=== PATIENT | female | born 1985 | race Two or more races ===

== ENCOUNTER 2023-10-30 11:26 | Outpatient (CLI) | payer OTHER, SELFPAY | END 2023-10-30 11:27 | disposition home or self-care (01) | PROVIDERS: Visit Provider Physician Assistant | DX: Z13.220 Encounter for screening for lipoid disorders (principal); Z13.29 Encounter for screening for other suspected endocrine disorder | CPT/HCPCS: 80061; 84443 ==

== ENCOUNTER 2023-11-27 15:56 | Outpatient (CLI) | payer OTHER, SELFPAY ==
--- NOTE | 2023-11-27 16:00 | US_ITS ---
Patient: DEDE VARELA Facility:?[facility] Patient ID:?[id number] Site Patient ID:?[id number]. Site :?1985 Study:?US-Pelvis PELVIS TA & TV-11/27/2023 6:10:16 PM Ordering Physician:ZEUS DECEMBER Final Report: INDICATION: Ovarian cyst. TECHNIQUE: Transabdominal and transvaginal pelvic ultrasound. COMPARISON: None. FINDINGS: Uterus is anteverted and measures 10.3 x 5.3 x 6.4 cm. Multiple nabothian cysts in the cervix. Endometrial stripe thickness is 1.7 cm. Endometrium is heterogeneous. Focal hyperechoic area within the endometrium measuring 1.5 cm, potentially a polyp. Both ovaries appear normal at normal color flow. Right ovary contains a couple of follicles measuring up to 2.6 cm. Trace free fluid. No adnexal mass. IMPRESSION: Heterogeneous, thickened endometrium and possible 1.5 cm polyp. Dictated by Lei Angelo MD @ 11/28/2023 9:12:30 AM Signed by:?Lei Angelo MD @11/28/2023 9:12:30 AM (Electronic Signature)
== END 2023-11-27 15:57 | disposition home or self-care (01) ==
LOC: US 15:57
PROVIDERS: Visit Provider Physician Assistant
DX: N83.209 Unspecified ovarian cyst, unspecified side (principal); R93.89 Abnormal findings on diagnostic imaging of other specified body structures
CPT/HCPCS: 76830; 76856

== ENCOUNTER 2024-01-08 13:14 | Outpatient (CLI) | payer OTHER, SELFPAY ==
--- NOTE | 2024-01-08 13:20 | MM_ITS ---
Patient: DEDE VARELA Facility:?[facility] R[facility] Patient ID:?[id number] Site Patient ID:?[id number]. Site :?1985 Study:?XRay-Breast Bilateral 3D W/CAD-01/08/2024 1:51:08 PM Ordering Physician:Xiomara December Final Report: BILATERAL SCREENING MAMMOGRAM WITH COMPUTER-AIDED DETECTION AND TOMOSYNTHESIS TECHNIQUE: CC and MLO views were obtained. These mammographic images have been obtained using full-field digital technique. These mammographic images were interpreted with the benefit of computer-aided detection. Breast Tomosynthesis was used in this interpretation. COMPARISON FILM: Baseline. FINDINGS: There are scattered areas of fibroglandular density. IMPRESSION: There is no radiographic evidence for malignancy. ASSESSMENT: BI-RADS Category 1: Negative RECOMMENDATION: Routine screening mammogram in 1 year. A lay language report of this examination will be provided to the patient. Quoc Hammond M.D. Diagnostic Radiologist [email or web address] R& Transcribed: 2:08 p.mJessee SP/Dictated by: Quoc Hammond MD @ 01/09/2024 9:24:00 AM Signed by:?Quoc Hammond MD @01/09/2024 3:20:06 PM (Electronic Signature)
== END 2024-01-08 13:15 | disposition home or self-care (01) ==
LOC: MAMMO 13:15
PROVIDERS: Visit Provider Physician Assistant
DX: Z12.31 Encounter for screening mammogram for malignant neoplasm of breast (principal)
CPT/HCPCS: 77063; 77067

== ENCOUNTER 2024-01-18 10:30 | Day surgery (SDC) | payer OTHER, SELFPAY ==
[2024-01-18 10:54] LABS: Ur HCG Qualitative* Negative (Negative)
[2024-01-18 11:09] VITALS: BMI 39.6
[2024-01-18 11:10] LABS: Hemoglobin* 13.6 gm/dL (12.0-16.0)
[2024-01-18 11:15] VITALS: BP 126/66; PULSE 72; RESP 20; TEMP 36.7; O2SAT 97
--- NOTE | 2024-01-18 11:26 | SUR.PREOP ---
pt speaks Portugese but understands hungarian well. Her speaks hungarian primarily and Portugese as well. Pt states she does not feel she requires any further assistance with the language issue. They are aware her cannot go back or OR with her
[2024-01-18 11:27] LABS: Creatinine* 0.7 mg/dL (0.5-1.5); Est. Creatinine Clearance* 107.77; Estimated Glomerular Filt Rate 112 ml/min
[2024-01-18] MEDS: SODIUM CHLORIDE 0.9 % (FLUSH) 10 ML SYRINGE IVF (11:29)
[2024-01-18] MEDS: LACTATED RINGERS 1000 ML 1,000 ML 100 ML IV (11:29)
--- NOTE | 2024-01-18 13:00 | SUR.OPER ---
PATIENT QUESTIONS ANSWERED SATISFACTORILY PREOPERATIVELY. PATIENT BROUGHT TO OR #4 PER CART. Patient positioned supine on OR #4 bed.? Perioperative team supported arms bilaterally on arm boards.? Final approval of positioning by surgeon. CONTINUOUS IRRIGATION OF THE UTERUS WITH NACL DURING PROCEDURE.
[2024-01-18] MEDS: SILVER NITRATE APPLICATOR 1 EACH STICK..EA. 3 EACH TOPICAL (13:16)
--- NOTE | 2024-01-18 13:23 | W.ANESCHARGE ---
Anesthesia Charges Start Date/Time Anesthesia Start Date: 01/18/24 Anesthesia Start Time: 12:36 Stop Date/Time Anesthesia Stop Date: 01/18/24 Anesthesia Stop Time: 13:29
--- NOTE | 2024-01-18 13:31 | W.ANESCHARGE ---
Anesthesia Charges Start Date/Time Anesthesia Start Date: 01/18/24 Anesthesia Start Time: 12:36 Stop Date/Time Anesthesia Stop Date: 01/18/24 Anesthesia Stop Time: 13:29
[2024-01-18 13:34] VITALS: BP 109/62; PULSE 78; RESP 16; TEMP 36.7; O2SAT 98
[2024-01-18] MEDS: KETOROLAC 30 MG/ML inj IVP (13:35)
--- NOTE | 2024-01-18 13:39 | W.PM.H&PU ---
History & Physical Update History & Physical Update H&P Reviewed and patient assessed: The following changes are noted below H&P Updates: No interval changes to her health history or status since we last spoke in clinic. Physical exam: General: No acute distress Psych: Alert and oriented x4, full affect HEENT: Normocephalic, atraumatic Neck: No cervical adenopathy, no thyromegaly Heart: Regular rate and rhythm, no murmur rub or gallop Lungs: Clear to auscultation bilaterally Abdomen: Normoactive bowel sounds, soft, no tenderness, rebound, or guarding Skin: No lesions or rashes Lower extremities: No edema or erythema Pelvic exam: Defer to OR
--- NOTE | 2024-01-18 13:42 | P.GYNPRC_ITS ---
Procedure Note Time Seen by Provider: 12:00 Date of procedure: 01/18/24 Will [facility] bill your pro fee for this procedure?: Yes Procedure Description: Preoperative diagnosis: Asif is a 38 year-old with abnormal finding on her ultrasound, focal hyperechoic area within the endometrium measures 1.5 cm, potential polyp Postoperative diagnosis: Endometrial polyp Procedure: Hysteroscopy, Dilation and Curettage, polypectomy using the Truclear incisor Anesthesia: Conscious sedation, paracervical block. Surgeon: Gloria Bansal MD Anesthesiology Fellow: None Estimated blood loss: 5 mL Specimen: Endometrial curettings to pathology. Findings: Exam under anesthesia: Uterus: anteverted position, less than 6 week sized, mobile, with no masses or nodularity palpable. Uterus sounded to 9 cm. No adnexal masses or nodularity palpable. On hysteroscopy: Possible sessile po lyps of posterior wall, otherwise normal uterine cavity. Normal bilateral tubal ostia. Procedure: Asif was taken to the operating operating room more conscious sedation was found to be adequate. The patient was placed on in the dorsal lithotomy position and an exam under anesthesia was performed with findings stated above. She was then prepped and draped in a normal sterile manner. A bivalve speculum was placed in the vagina. The cervix appears nulliparous. Otherwise no abnormalities. The paracervical block was placed using 1% lidocaine with epinephrine, 5 mL was injected at the 4 and 8 o'clock positions on the cervix. The anterior lip of the cervix was grasped with a long tenaculum. The cervix dilated to Hegar 6. The uterus sounded to 9 cm. The Truclear hysteroscope was advanced into the uterus. A diagnostic hysteroscopy was performed with normal saline as the insufflation medium. Findings are stated above. The Truclear incisor was then advanced through the camera. The curettage was performed with the incisor. The incisor was then removed. The endometrial cavity appeared normal. Saline deficit at the end of the procedure 355 mL. Total saline used 2975 mL. Silver Nitrate was used for hemostasis. The hysteroscope, Allis clamp and speculum were removed from the vaginal canal. The patient tolerated the procedure well. Sponge, lap and instrument counts were correct x2 at the end of the procedure. The patient was taken to the recovery area in stable condition.
[2024-01-18 13:50] VITALS: BP 103/67; PULSE 76; RESP 16; O2SAT 99
[2024-01-18 14:20] VITALS: BP 126/87; PULSE 77; RESP 16; TEMP 36.5; O2SAT 99
== END 2024-01-18 14:40 | disposition home or self-care (01) ==
PROVIDERS: Visit Provider Obstetrics & Gynecology
PROC: 0UDB8ZZ Extraction of Endometrium, Via Natural or Artificial Opening Endoscopic (ICD-10-PCS; CPT 58558; principal; 2024-01-18 11:45)
DX: N84.0 Polyp of corpus uteri (principal); R93.89 Abnormal findings on diagnostic imaging of other specified body structures
CPT/HCPCS: 58558; 00952; 36415; 81025; 82565; 85018; 86850; 86900; 86901; 88305; A9270; J1100; J1885; J2250; J2405; J2704; J3010; J7120